=== PATIENT | male | born 1945 | race Caucasian/White ===

== ENCOUNTER 2016-06-01 06:56 | Inpatient (IN) | payer MEDICARE, BC ==
[2016-06-01] MEDS ORDERED: IPRATROPIUM-ALBUTEROL 3 ML NEB INHALATION PRN (08:01)
--- NOTE | 2016-06-01 08:01 | ED ---
General Adult HPI - General Chief complaint: Shortness of Breath Stated complaint: respiratory Time Seen by Provider: 06/01/16 07:30 Source: patient, EMS, RN notes reviewed Mode of arrival: EMS Limitations: no limitations - History of Present Illness Initial comments: Patient is a pleasant [age]-year-old male presenting to the emergency department with difficulty in breathing. Patient does have history of COPD. Onset of symptoms was yesterday. Patient has been admitted a couple of times over the past year. Patient does have cough that is nonproductive. No fevers. No chest pains. Patient was earlier at [facility] and transferred for level of care and pulmonary consult. Patient sees Dr. Welch. - Related Data Home Medications Medication Instructions Recorded Confirmed Albuterol Inhaler [Ventolin Hfa 2 puff INHALATION RT-Q6H PRN 10/13/15 02/25/16 Inhaler] Aspirin [Adult Low Dose Aspirin EC] 81 mg PO DAILY 10/13/15 02/25/16 Budesonide/Formoterol Fumarate 2 puff INHALATION RT-BID 10/13/15 02/25/16 [Symbicort 80-4.5 Mcg Inhaler] Lisinopril [Zestril] 20 mg PO DAILY 10/13/15 02/25/16 Nogal-3 Fatty Acids/Fish Oil [Fish 1 cap PO DAILY 10/13/15 02/25/16 Oil 1,000 mg Softgel] Albuterol Nebulized [Ventolin 2.5 mg INHALATION RT-Q6H PRN 02/25/16 02/25/16 Nebulized] Tiotropium [place] [Spiriva 1 puff INHALATION RT-DAILY 02/25/16 02/25/16 Respimat] Previous Rx's Medication Instructions Recorded Multivitamins, Thera [Multivitamin] 1 tab PO DAILY #30 tablet 10/17/15 Azithromycin [Zithromax] 500 mg PO DAILY #5 tab 02/27/16 Folic Acid 1 mg PO DAILY #30 tablet 02/27/16 Nicotine 21Mg/24Hr Patch [Habitrol] 1 patch TRANSDERM DAILY #30 patch 02/27/16 Thiamine [Vitamin B-1] 100 mg PO DAILY #30 tablet 02/27/16 predniSONE 10 mg PO DIRECTED #30 tab 02/27/16 Allergies Allergy/AdvReac Type Severity Reaction Status Date / Time No Known Allergies Allergy Verified 06/01/16 07:12 Review of Systems ROS Statement: Those systems with pertinent positive or pertinent negative responses have been documented in the HPI. ROS Other: All systems not noted in ROS Statement are negative. Constitutional: Denies: fever Eyes: Denies: eye pain ENT: Denies: ear pain Respiratory: Reports: cough, dyspnea Cardiovascular: Denies: chest pain Endocrine: Denies: fatigue Gastrointestinal: Denies: abdominal pain Genitourinary: Denies: dysuria Musculoskeletal: Denies: back pain Skin: Denies: rash Neurological: Denies: weakness Past Medical History Past Medical History: Asthma, COPD, Hypertension, Osteoarthritis (OA) Additional Past Medical History / Comment(s): asthma as child, COPD with an FEV1 of 49% of predicted and previous history of ventilator-dependent respiratory failure in 10/13/2015 History of Any Multi-Drug Resistant Organisms: None Reported Past Surgical History: No Surgical Hx Reported Additional Past Surgical History / Comment(s): tooth extractions, colonoscopy/ polypectomt(benign) Past Anesthesia/Blood Transfusion Reactions: No Reported Reaction Additional Past Anesthesia/Blood Transfusion Reaction / Comment(s): never had any blood transfusions Past Psychological History: No Psychological Hx Reported Additional Psychological History / Comment(s): pt lives at home with his leslie. 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 Smoking Status: Former smoker Past Alcohol Use History: Daily Additional Past Alcohol Use History / Comment(s): started smoking at age 13 quit at age 68, stated on average pt drinks 4-5 beer per day Past Drug Use History: Marijuana Additional Drug Use History / Comment(s): no drug use now. did smoked marijuana when in [email or web address]. - Past Family History Mother Family Medical History: Cancer, Dementia Additional Family Medical History / Comment(s): alzheimers, breast cancer. Father Family Medical History: CVA/TIA, Myocardial Infarction ([place]) General Exam Limitations: no limitations General appearance: alert, in no apparent distress Head exam: Present: atraumatic Eye exam: Present: normal appearance, PERRL ENT exam: Present: normal oropharynx Neck exam: Present: normal inspection Respiratory exam: Present: wheezes (Minimal expiratory), decreased breath sounds Cardiovascular Exam: Present: tachycardia GI/Abdominal exam: Present: soft. Absent: tenderness Extremities exam: Present: normal inspection. Absent: pedal edema, calf tenderness Neurological exam: Present: alert Psychiatric exam: Present: normal affect, normal mood Skin exam: Absent: rash Course Vital Signs 06/01/16 06/01/16 07:07 07:28 Temperature 97.7 F Pulse Rate 113 H 106 H Respiratory 24 24 Rate Blood Pressure 181/93 O2 Sat by Pulse 98 96 Oximetry - Reevaluation(s) Reevaluation #1: 06/01/16 08:00 Reviewed chest x-ray report, labs and EKG as well as ER report from [facility]. Patient was updated on plan. Case was discussed in detail with Dr. James, covering for Dr. Welch. Disposition Clinical Impression: COPD with acute exacerbation Disposition: ADMITTED IP TO THIS [facility] Time of Disposition: 08:01
[2016-06-01 08:58] VITALS: RESP 20
[2016-06-01 09:07] LABS: ALT 37 U/L (21-72); AST 33 U/L (17-59); Alkaline Phosphatase 55 U/L (38-126); Anion Gap 16 mmol/L; Blood Urea Nitrogen 14 mg/dL (9-20); Calcium 9.8 mg/dL (8.4-10.2); Carbon Dioxide 24 mmol/L (22-30); Chloride 104 mmol/L (98-107); Glucose 150 mg/dL (74-99); Non-African American GFR(MDRD) >60 (>60 ml/min/1.73 sqM); Potassium 4.6 mmol/L (3.5-5.1); Sodium 144 mmol/L (137-145); Total Bilirubin 0.5 mg/dL (0.2-1.3); Total Protein 7.9 g/dL (6.3-8.2)
[2016-06-01 09:11] LABS: Basophils % (A) 0 %; CH 32.6; CHCM 33.4; Eosinophils % (A) 0 %; HCT 44.9 % (39.0-53.0); HDW 2.25; HGB 14.9 gm/dL (13.0-17.5); Luc # (Auto) 0.05; Luc % (Auto) 1; Lymphocytes # (A) 0.4 k/uL (1.0-4.8); Lymphocytes % (A) 5 %; MCH 32.4 pg (25.0-35.0); MCHC 33.1 g/dL (31.0-37.0); MCV 97.8 fL (80.0-100.0); Mean Platelet Volume 6.7; Monocytes # (A) 0.1 k/uL (0-1.0); Monocytes % (A) 1 %; Neutrophils # (A) 6.7 k/uL (1.3-7.7); Neutrophils % (A) 92 %; RBC 4.59 m/uL (4.30-5.90); RDW 13.1 % (11.5-15.5); WBC 7.2 k/uL (3.8-10.6); WBC (Perox) 7.32
[2016-06-01 10:45] VITALS: BMI 21.2
[2016-06-01 11:46] LABS: Glucose,Whole Blood 152 mg/dL (75-99)
[2016-06-01] MEDS: IPRATROPIUM-ALBUTEROL 3 ML NEB INHALATION SCH ×2 (11:49→16:35)
[2016-06-01] MEDS ORDERED: methylPREDNISolone SOD SUCCI 125 MG/2 ML VIAL IV SCH (12:00)
[2016-06-01] MEDS ORDERED: INSULIN LISPRO (humaLOG) 300 UNIT/3 ML VIAL SQ SCH (12:30)
--- NOTE | 2016-06-01 13:20 | P.CNPUL ---
History of Present Illness Consult date: 06/01/16 Requesting physician: Lazara James Reason for consult: COPD Chief complaint: Shortness of breath History of present illness: This is a very pleasant 70-year-old gentleman who has a past medical history of hypertension, osteoarthritis. He follows with Dr. Welch for chronic obstructive pulmonary disease his FEV1 value of 49% of predicted. He is maintained on Symbicort, Spiriva, theophylline and albuterol. He smoked for approximately 50 years but did quit at age 68. He does drink approximately 4-5 beers per day. He also has previous ventilatory dependent respiratory failures due to COPD exacerbations. He was last here in February 2016 and required mechanical ventilation at that time as well. Yesterday he presented to [facility] after developing a rather acute onset of shortness of breath. He was also wheezing. He utilizes home nebulizer without much improvement. He was transferred here for further evaluation and treatment. Per the patient and his a chest x-ray at her reach did not reveal any acute abnormalities. The patient is seen today in consultation on the regular medical floor. He is awake and alert in no acute distress. He states he is already breathing easier today as compared to yesterday. He is maintaining O2 saturations in the mid 90s on room air. He's been afebrile. Hemodynamically stable. No leukocytosis. Theophylline level 8.6. He has been initiated on DuoNeb's, Symbicort, IV Solu-Medrol and his theophylline. Review of Systems 14 point review of system was conducted. All negative other than as mentioned in HPI. Past Medical History Past Medical History: Asthma, COPD, Eye Disorder, Hearing Disorder / Deafness, Hyperlipidemia, Hypertension, Osteoarthritis (OA), Respiratory Disorder, Sleep Apnea/CPAP/BIPAP Additional Past Medical History / Comment(s): asthma as child, COPD with an FEV1 of 49% of predicted and previous history of ventilator-dependent respiratory failure in 10/13/2015 History of Any Multi-Drug Resistant Organisms: None Reported Past Surgical History: No Surgical Hx Reported Additional Past Surgical History / Comment(s): tooth extractions, colonoscopy/ polypectomy(benign) Past Anesthesia/Blood Transfusion Reactions: No Reported Reaction Additional Past Anesthesia/Blood Transfusion Reaction / Comment(s): never had any blood transfusions Past Psychological History: PTSD Additional Psychological History / Comment(s): pt lives at home with his leslie. 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 Smoking Status: Former smoker Past Alcohol Use History: Daily Additional Past Alcohol Use History / Comment(s): started smoking at age 13 quit at age 68, stated on average pt drinks 4-5 beer per day Past Drug Use History: Marijuana Additional Drug Use History / Comment(s): no drug use now. did smoked marijuana when in [place]. - Past Family History Mother Family Medical History: Cancer, Dementia Additional Family Medical History / Comment(s): alzheimers, breast cancer. Father Family Medical History: CVA/TIA, Myocardial Infarction ([place]) Medications and Allergies Home Medications Medication Instructions Recorded Confirmed Type Albuterol Inhaler [Ventolin Hfa 2 puff INHALATION RT-Q6H PRN 10/13/15 06/01/16 History Inhaler] Aspirin [Adult Low Dose Aspirin EC] 81 mg PO HS 10/13/15 06/01/16 History Budesonide/Formoterol Fumarate 2 puff INHALATION RT-BID 10/13/15 06/01/16 History [Symbicort 80-4.5 Mcg Inhaler] [place]-3 Fatty Acids/Fish Oil [Fish 1 cap PO HS 10/13/15 06/01/16 History Oil 1,000 mg Softgel] Albuterol Nebulized [Ventolin 2.5 mg INHALATION RT-Q6H PRN 02/25/16 06/01/16 History Nebulized] Tiotropium [place] [Spiriva 1 puff INHALATION RT-DAILY 02/25/16 06/01/16 History Respimat] Azithromycin [Zithromax] 500 mg PO MOWEFR 06/01/16 06/01/16 History Losartan Potassium [Cozaar] 100 mg PO DAILY 06/01/16 06/01/16 History Multivitamins, Thera [Multivitamin] 1 tab PO HS 06/01/16 06/01/16 History Omeprazole [PriLOSEC] 20 mg PO AC-SUPPER 06/01/16 06/01/16 History Theophylline 12 Hour [Steve-Dur] 300 mg PO BID 06/01/16 06/01/16 History predniSONE 5 mg PO TUTHSA 06/01/16 06/01/16 History Allergies Allergy/AdvReac Type Severity Reaction Status Date / Time No Known Allergies Allergy Verified 06/01/16 11:22 Physical Exam Vitals: Vital Signs Temp Pulse Pulse Resp BP BP Pulse Ox 06/01/16 11:59 96 06/01/16 11:49 100 06/01/16 08:56 96.8 F L 113 H 20 196/85 95 06/01/16 08:46 98.1 F 77 16 184/89 99 Intake and Output 05/31/16 06/01/16 06/01/16 22:59 06:59 14:59 Other: Voiding Method Toilet Weight 88.6 kg Patient Weight 06/02/16 06:59 Weight 88.6 kg GENERAL EXAM: Alert, active, comfortable in no apparent distress. HEAD: Normocephalic. EYES: Normal reaction of pupils, equal size. NOSE: Clear with pink turbinates. THROAT: No erythema or exudates. NECK: No masses, no JVD. CHEST: No chest wall deformity. LUNGS: Equal air entry with faint end expiratory wheeze. Diminished.. CVS: S1 and S2 normal with no audible murmurs, regular rhythm. ABDOMEN: No hepatosplenomegaly, normal bowel sounds, no guarding or rigidity. SPINE: No scoliosis or deformity SKIN: No rashes CENTRAL NERVOUS SYSTEM: No focal deficits, tone is normal in all 4 extremities. Extremities: There is no significant peripheral edema. No clubbing, no cyanosis. Peripheral pulses are intact. Results - Laboratory Findings CBC and BMP: 06/01/16 07:24 06/01/16 07:24 Abnormal lab findings: Abnormal Labs 06/01/16 11:42 POC Glucose (mg/dL) 152 H Assessment and Plan Plan: Impression: #1 Acute exacerbation of Gold stage III chronic obstructive pulmonary disease. FEV1 value of 49% of predicted. #2 Previous history of ventilatory dependent respiratory failures secondary to COPD exacerbations. Most recently February 2016. #3 50+ pack per day smoking history however quit 2 years ago. #4 Hypertension. #5 Osteoarthritis. #6 Daily alcohol use. Plan: The patient was seen and evaluated by Dr. Welch. We'll continue with his current medications including DuoNeb inhalations 4 times a day and when necessary, Symbicort, IV Solu-Medrol, theophylline. No clear indication for antibiotic at this time. We will increase his activity as tolerated. We'll observe for any signs of delirium tremens as the patient is a daily alcohol user. We'll continue to follow make further recommendations based on his clinical status.
[2016-06-01] MEDS ORDERED: RX INFO: IV CONTRAST WAS GIVEN 1 EACH MISC MISCELLANE PRN (13:22)
[2016-06-01 13:28] LABS: Hemoglobin A1C 5.4 % (4.2-6.1)
[2016-06-01] MEDS ORDERED: LOSARTAN 50 MG TAB PO SCH (15:00)
--- NOTE | 2016-06-01 15:06 | HP ---
DATE OF ADMISSION: HISTORY AND PHYSICAL AND DISCHARGE SUMMARY Patient is a 70-year-old with known history of COPD, FEV1 of 49% came in with complaints of shortness of breath. The shortness of breath started about 3to 4 days ago with cough with whitish ( ) sputum production without any fever, chills, without any body aches. Chest x-ray did not show any pneumonic process. Patient does not use any oxygen at home. Patient has significant improvement since he came in and received breathing treatments in [place] and here. Patient apparently is getting short of breath with some exertion. On clinical exam, patient does not have any wheezing because of which Pulmonology is recommending a CT chest with contrast to rule out any pulmonary embolism. If there is no pulmonary embolism, the patient will be discharged on weaning dose of steroids. Patient is already on Z-Efren, which he will continue. Patient denied any orthopnea, PND. REVIEW OF SYSTEMS: CONSTITUTIONAL: No fever, no malaise, no fatigue. HEENT: No recent visual problems or hearing problems. Denied any sore throat. CARDIOVASCULAR: No chest pain, orthopnea, PND, no palpitations, no syncope. PULMONARY: As described in HPI. GASTROINTESTINAL: No diarrhea, no nausea, no vomiting, no abdominal pain. Normoactive bowel sounds. NEUROLOGICAL: No headaches, no weakness, no numbness. HEMATOLOGICAL: Denies any bleeding or petechiae. GENITOURINARY: Denies any burning micturition, frequency, or urgency. MUSCULOSKELETAL/RHEUMATOLOGICAL: Denies any joint pain, swelling, or any muscle pain. ENDOCRINE: Denies any polyuria or polydipsia. The rest of the 14 point review of systems is negative. PAST MEDICAL HISTORY: Significant for COPD, hyperlipidemia, hypertension, osteoarthritis, sleep apnea, PTSD. SOCIAL HISTORY: Former smoker. Quit smoking at age 68. Drinks about 4 to 5 beers per day. Occasionally uses marijuana. FAMILY HISTORY: Mother had Alzheimer's dementia and breast cancer. Father had CVA and myocardial infarction . HOME MEDICATIONS: 1. Albuterol. 2. Aspirin. 3. Budesonide formoterol. 4. [place] 3 fatty acids. 5. Tiotropium. 6. Azithromycin. 7. Losartan. 8. Multivitamin. 9. Omeprazole. 10. Prednisone 5 mg alternate day. ALLERGIES: No known drug allergies. PHYSICAL EXAMINATION: Temperature 96.8, pulse of 96, when he came in patient was tachycardic. Blood pressure is 194/89. Saturating at 95% on 2 L of O2 of nasal cannula. GENERAL: The patient is alert and oriented x3, not in any acute distress. Well developed, well nourished. HEENT: Pupils are round and equally reacting to light. EOMI. No scleral icterus. No conjunctival pallor. Normocephalic, atraumatic. No pharyngeal erythema. No thyromegaly. CARDIOVASCULAR: S1 and S2 present. No murmurs, rubs, or gallops. PULMONARY: Chest is clear to auscultation, no wheezing or crackles. ABDOMEN: Soft, nontender, nondistended, normoactive bowel sounds. No palpable organomegaly. MUSCULOSKELETAL: No joint swelling or deformity. EXTREMITIES: No cyanosis, clubbing, or pedal edema. NEUROLOGICAL: Gross neurological examination did not reveal any focal deficits. SKIN: No rashes. LABORATORY DATA: CBC, CMP essentially within normal limits. Chest x-ray did not show any pneumonic process, this is from [facility]. ASSESSMENT AND PLAN: 1. Acute hypercapnic respiratory failure secondary to chronic obstructive pulmonary disease exacerbation. Patient has Gold stage II chronic obstructive pulmonary disease. The patient has significant clinical improvement. If CT angio of the chest did not show any pulmonary embolism, will ambulate the patient and if his saturations are okay and if his vitals are okay without any tachycardia or tachypnea, patient will be discharged with weaning dose of steroids. 2. Hypertension. 3. Osteoarthritis. 4. Continued alcohol use and patient is not willing to quit alcohol either. The patient will be discharged on weaning dose of steroids. Cardiac diet. Activity as tolerated. Follow up with Dr. Catrachito Mayo in 3 to 7 days and follow up with Dr. Welch in the clinic as scheduled.
[2016-06-01 15:08] VITALS: BP 174/91; TEMP 97
--- NOTE | 2016-06-01 15:40 | CT ---
EXAMINATION TYPE: CT chest angio for PE DATE OF EXAM: 06/01/2016 3:33 PM COMPARISON: 10/13/2015 HISTORY: SOB and COPD CT DLP: 614 mGycm Automated exposure control for dose reduction was used. CONTRAST: CT Chest for pulmonary embolism performed with with IV Contrast, patient injected with 80 mL of Omnip aque 350. FINDINGS: There are 3-D post processed images. Lungs are clear of consolidation. There is no evidence of a pulmonary mass. The heart size is normal. There are no hilar masses. There is no pericardial effusion. There is no mediastinal adenopathy. The re is normal contrast opacification of the pulmonary arteries. I see no filling defects. There is no evidence of thoracic aortic aneurysm or dissection. There are mild emphysematous changes in the upper lobes. There is no pleural effusion. The bony thorax is intact. IMPRESSION: No evidence of pulmonary embolism. Mild pulmonary emphysema. There is clearing of infiltrates in both lungs compared to old exam.
[2016-06-01 16:44] VITALS: PULSE 112
[2016-06-01] MEDS ORDERED: PANTOPRAZOLE 40 MG TABLET PO SCH (17:30)
[2016-06-01] MEDS ORDERED: SYMBICORT 80-4.5 MCG INHALER INHALATION SCH (20:00)
[2016-06-01] MEDS ORDERED: ASPIRIN 81 MG CHEW PO SCH (21:00)
[2016-06-01] MEDS ORDERED: THEOPHYLLINE 24 HOUR 300 MG CAP.ER.24H PO SCH (21:00)
[2016-06-02] MEDS ORDERED: NON-FORMULARY DRUG (Tiotropium Bromide [Spiriva Respimat] 1 PUFF) INHALATION SCH (08:00)
[2016-06-02] MEDS ORDERED: LOSARTAN 50 MG TAB PO SCH (09:00)
== END 2016-06-01 16:58 | disposition home or self-care (01) | DRG 192 ==
LOC: EC 06:56 → 4MS4W 08:28
PROVIDERS: ADMIT Internal Medicine; ATTEND Internal Medicine
DX: J44.1 Chronic obstructive pulmonary disease with (acute) exacerbation (principal); I10 Essential (primary) hypertension; E78.5 Hyperlipidemia, unspecified; F43.10 Post-traumatic stress disorder, unspecified; G47.30 Sleep apnea, unspecified; H91.90 Unspecified hearing loss, unspecified ear; M19.90 Unspecified osteoarthritis, unspecified site; Z79.82 Long term (current) use of aspirin; Z79.899 Other long term (current) drug therapy; Z87.891 Personal history of nicotine dependence; Z82.49 Family history of ischemic heart disease and other diseases of the circulatory system
CPT/HCPCS: 36415; 71275; 80053; 80198; 83036; 85025; 94640; 99285